=== PATIENT | female | born 1960 | race Caucasian/White ===

== ENCOUNTER → 2019-07-28 | Outpatient (CLI) | payer OTHER ==
--- NOTE | 2019-07-28 12:17 | MR ---
EXAMINATION TYPE: MR brain/cspine wo DATE OF EXAM: 07/28/2019 11:55 AM COMPARISON: NONE HISTORY: Headaches, Neck Pain. Hx of Trauma to neck area. Hx of Pituitary Adenoma TECHNIQUE: Multiplanar MultiSpin at imaging the brain was performed without contrast medium. High-res olution images were obtained through the pituitary fossa. FINDINGS: The ventricles, basal cisterns and sulci overlying the cerebral convexities are minimally enlarged. There is evidence of mild periventricular white matter ischemic demyelination. Remote deep white matter insults are also noted. No acute edema is seen on diffusion weighted imaging. There is no evidence for midline shift or mass effect. Acute intracranial hemorrhage or extra-axial collection is not evident. The paranasal sinuses are well-aerated. Fluid is seen within the right-sided mastoid air cells charly tible with chronic mastoiditis. Limited evaluation of the pituitary fossa demonstrates hyperdense lesion in the posterior aspect of t he pituitary gland measuring 7 mm which may reflect pituitary adenoma. Optic chiasm is midline. Supra sellar cistern is unremarkable. Pituitary gland is of normal size. IMPRESSION: Age-related atrophic and chronic small vessel ischemic change. No acute intracranial process at this time. Suspect pituitary adenoma. EXAMINATION TYPE: MR brain/cspine wo DATE OF EXAM: 07/28/2019 11:55 AM COMPARISON: NONE HISTORY: Headaches, Neck Pain. Hx of Trauma to neck area. Hx of Pituitary Adenoma Multiplanar MultiSpin echo imaging of the cervical spine was performed. Comparison: none C2-C3: No evidence for degenerative disc disease. No disc bulge/herniation or protrusion. No Canal stenosis. Foramina are patent bilaterally. C3-C4: No evidence for degenerative disc disease. No disc bulge/herniation or protrusion. No Canal stenosis. Foramina are patent bilaterally. C4-C5: No evidence for degenerative disc disease. No disc bulge/herniation or protrusion. No Canal stenosis. Foramina are patent bilaterally. C5-C6: Moderate disc desiccation noted. Posterior disc bulge with effacement of the ventral thecal sa c. Minimal ventral cord contact without overt stenosis. Bilateral neural foraminal encroachment. C6-C7: Moderate disc desiccation with posterior disc bulge. Mild effacement ventral thecal sac. No he rniation or central stenosis. Right greater than left foraminal encroachment. C7-T1: Moderate disc desiccation with posterior disc bulge. Mild effacement ventral thecal sac. No he rniation or central stenosis. Lateral foraminal encroachment. Cervical segments are intact. There is normal alignment. Cervical spinal cord is of normal signal. Craniovertebral junction relationships are within normal limits. IMPRESSION: 1. Multilevel degenerative disc disease and foraminal encroachment as discussed.
== END | disposition home or self-care (01) ==
LOC: RADMRIMAIN 10:34
PROVIDERS: ATTEND Family Medicine
DX: M50.322 Other cervical disc degeneration at C5-C6 level (principal); M48.02 Spinal stenosis, cervical region; Z86.011 Personal history of benign neoplasm of the brain
CPT/HCPCS: 70551; 72141

== ENCOUNTER → 2020-05-24 | Day surgery (SDC) | payer OTHER ==
[2020-05-17 15:49] VITALS: BMI 27.4
[~2020-05-24] MED LIST: ACETAMINOPHEN TAB 325 MG TAB ONE; ALPRAZolam 0.25 MG TAB PO PRN; ALPRAZolam 0.5 MG TAB PO PRN; ASPIRIN 325 MG TAB PO STA; ASPIRIN 81 MG PO SCH; ATORVASTATIN 80 MG TAB PO STA; HEPARIN SODIUM 1,000 UN/ML (10ML VL) IV ONE; HEPARIN SODIUM 1,000 UN/ML (10ML VL) ONE; HEPARIN SODIUM,PORCINE 10,000 UNIT in SODIUM CHLORIDE 0.9% 1,000 ML IRRIGATION PRN; HEPARIN SODIUM,PORCINE 2,500 UNIT in SODIUM CHLORIDE 0.9% 250 ML IRRIGATION PRN; IOPAMIDOL-370 125ML BTL INJ ONE; LIDOCAINE 1% INJ 10MG/ML (20 ML MDV) ONE; LIDOCAINE 1% INJ 10MG/ML (20 ML MDV) SQ ONE; MIDAZOLAM 2 MG/2 ML VIAL IV ONE; NITROGLYCERIN SL TABS 0.4 MG TAB SUBLINGUAL PRN; RX INFO: IV CONTRAST WAS GIVEN 1 EACH MISC MISCELLANE PRN; SODIUM CHLORIDE 0.9% 1,000 ML IV ONE; SODIUM CHLORIDE 0.9% 1,000 ML IV SCH; SODIUM CHLORIDE 0.9% 1,000 ML in EMPTY BAG 1 BAG IV ONE; VERAPAMIL 2.5 MG/ML 2 ML AMP ONE; VERAPAMIL SYRINGE (5 MG/10 ML) INTRAARTER ONE; fentaNYL (PF) 50 MCG/ML 2 ML AMP IV ONE; fentaNYL (PF) 50 MCG/ML 2 ML AMP ONE
[2020-05-24 07:05] VITALS: RESP 16; TEMP 98.5
--- NOTE | 2020-05-24 08:51 | CC ---
CARDIAC CATHETERIZATION REPORT Mrs. Strong is a 59-year-old female with known history of chronic tobacco use, was scheduled to undergo total knee arthroplasty and was found to have evidence of inducible ischemia. In view of that, recommendation was made regarding cardiac catheterization. The procedure as well as the risks and the complications were discussed with the patient who is in full understanding and agreement. PROCEDURE: Patient was brought to the dairy laboratory technician in a fasting semi-sedated state after receiving fentanyl and Benadryl and achieving moderate conscious sedated state. Using Xylocaine anesthesia and Seldinger technique, a 6-Gu[place] sheath was introduced in the right radial artery. Selective right and left coronary angiography was performed using 5- [place]alan 3.5 bend right and left Mario catheter. Multiple views of the coronary artery including hemiaxial views were obtained. Following that, 5-[place] tight pigtail catheter was introduced in the left ventricle and pressures were calculated. Following that, catheter and sheath were removed. Hemostasis was obtained with deployment of a TR band. There was no immediate complication. The patient was returned to her room in stable condition. Of note, the patient received 3500 units of intravenous heparin as well as intra-arterial verapamil. FINDINGS: FLUOROSCOPY: There was calcification involving all the coronary arteries of moderate degree. LEFT MAIN: This is a large-size vessel, bifurcating into left circumflex, left anterior descending artery. Left main coronary artery has no evidence of high-grade stenosis. LEFT ANTERIOR DESCENDING ARTERY: This is a large-size vessel reaching to the apex giving rise to a large diagonal branch. Left anterior descending artery as well as branches have no evidence of high-grade stenosis. There was mild plaque in the diagonal branch. LEFT CIRCUMFLEX: This is a nondominant vessel giving rise to 2 obtuse marginal branches. The second one is large in caliber. The left circumflex has mild intimal disease of 10% without any evidence of high-grade stenosis. RIGHT CORONARY ARTERY: This is a large dominant vessel bifurcating distally PDA and posterolateral segment and branches, calcified in the mid segment. The right coronary artery has a 10% to 20% plaque proximally. The rest of the vessel has no high-grade stenosis. LEFT VENTRICULOGRAM: Left ventriculogram is not performed. HEMODYNAMICS: There was no gradient across the aortic valve. The left ventricular end- diastolic pressure was 14-18 mmHg. CONCLUSION: 1. Calcified coronary arteries. 2. Minimal obstructive disease involving the 3 coronary arteries. RECOMMENDATION: In view of finding anatomy, I recommend continue medical therapy with aggressive coronary risk modification including smoking cessation. Those findings and recommendation were discussed with the patient and her family and they are in full understanding and agreement. Duration of sedation is 16 minutes. STEVE / TODDN: [id number] /
[2020-05-24 14:54] VITALS: BP 143/75; PULSE 83
== END | disposition home or self-care (01) ==
LOC: CATHCVL 06:35
PROVIDERS: ATTEND Internal Medicine Interventional Cardiology
DX: I25.10 Atherosclerotic heart disease of native coronary artery without angina pectoris (principal); I25.84 Coronary atherosclerosis due to calcified coronary lesion; M19.90 Unspecified osteoarthritis, unspecified site; F17.210 Nicotine dependence, cigarettes, uncomplicated; Z82.49 Family history of ischemic heart disease and other diseases of the circulatory system; Z98.890 Other specified postprocedural states; Z90.89 Acquired absence of other organs; Z84.1 Family history of disorders of kidney and ureter; Z90.710 Acquired absence of both cervix and uterus; Z79.82 Long term (current) use of aspirin
CPT/HCPCS: 93458; C1769; C1894; J2250; J2001; J3010; J1644; Q9967

== ENCOUNTER 2020-12-25 13:00 | Emergency (ER) | payer BC, OTHER ==
[2020-12-25 14:44] VITALS: RESP 18; TEMP 98.2
[2020-12-25] MEDS ORDERED: oxyCODONE-APAP 10-325MG 1 EACH TAB PO STA (15:55)
--- NOTE | 2020-12-25 15:57 | ED ---
General Adult HPI - General Chief complaint: Extremity Problem,Nontraumatic Stated complaint: Thinks blood clot leg Time Seen by Provider: 12/25/20 15:42 Source: patient Mode of arrival: ambulatory Limitations: no limitations - History of Present Illness Initial comments: Dictation was produced using [employer] dictation software. please excuse any gra mmatical, word or spelling errors. Chief Complaint: 60-year-old female presents with knee pain History of Present Illness: Patient is a 52-year-old female presents to the emergency department for knee pain. Patient states that she has had one week of knee pain. States that the pain is behind her knee down into her calf and to her left medial knee. Patient is no history of blood clots. Back in May of this year she had total knee replacement performed by orthopedic surgeon Dr. Coleman. Patient states that over the last week or so her knee pain has been getting significantly worse. She tried to follow-up with orthopedic surgeon but they told her to come to the ER to be evaluated for DVT. Patient denies any chest pain or shortness of breath. Denies any numbness daily and paresthesias to the distal extremities. States that she has history of arterial disease to the popliteal artery. The ROS documented in this emergency department record has been reviewed and confirmed by me. Those systems with pertinent positive or negative responses have been documented in the HPI. All other systems are other negative and/or noncontributory. PHYSICAL EXAM: General Impression: Alert and oriented x3, not in acute distress HEENT: Normocephalic atraumatic, extra-ocular movements intact, pupils equal and reactive to light bilaterally, mucous membranes moist. Cardiovascular: Heart regular rate and rhythm Chest: Able to complete full sentences, no retractions, no tachypnea Musculoskeletal: Pulses present and equal in all extremities, no peripheral edema Left knee: Surgical site to the anterior knee clean dry and intact, there is swelling and palpable crepitus to the anterior knee, there is calf tenderness with palpation.. Neurological: CN II-XII grossly intact, no focal motor or sensory deficits noted Skin: Intact with no visualized rashes Psych: Normal affect and mood ED course: 60-year-old female presents with 1 week of left knee pain. Clinical presentation concerning for the venous thrombosis patient does not have any PE symptoms. Vital signs upon arrival shows heart rate 112, rest of vital signs within acceptable limits. X-ray shows no acute processes. Ultrasound of the lower extremity shows no evidence for DVT. Patient reevaluated at bedside. It is unclear was causing patient's pain but is likely musculoskeletal. She is reevaluated at bedside at 5:30 PM and in stable medical condition. She is smiling and not in significant distress. She is able to move her leg after having been given analgesics. Patient be discharged per she is advised follow-up with her orthopedic surgeon. - Related Data Home Medications Medication Instructions Recorded Confirmed Aspirin [Adult Low Dose Aspirin EC] 81 mg PO DAILY 05/17/20 12/25/20 Ascorbic Acid [Vitamin C] 1,000 mg PO DAILY 12/25/20 12/25/20 Atorvastatin Calcium [Lipitor] 20 mg PO HS 12/25/20 12/25/20 Cholecalciferol [Vitamin D3 (25 25 mcg PO DAILY 12/25/20 12/25/20 Mcg = 1000 Iu)] Cyanocobalamin (Vitamin B-12) 1,000 mcg PO DAILY 12/25/20 12/25/20 [Vitamin B-12] Glucosamine/Chondr Chauhan A Sod [Osteo 1 tab PO DAILY 12/25/20 12/25/20 Bi-Flex Caplet] Magnesium 250 mg PO DAILY 12/25/20 12/25/20 Pyridoxine HCl (Vitamin B6) 100 mg PO DAILY 12/25/20 12/25/20 [Vitamin B-6] Zinc 50 mg PO DAILY 12/25/20 12/25/20 Allergies Allergy/AdvReac Type Severity Reaction Status Date / Time garlic Allergy Unknown Verified 12/25/20 16:26 onion Allergy Abdominal Verified 12/25/20 16:26 Pain, hives, thick tongue, headache, shakes Review of Systems ROS Statement: Those systems with pertinent positive or pertinent negative responses have been documented in the HPI. ROS Other: All systems not noted in ROS Statement are negative. Past Medical History Past Medical History: Cancer, GERD/Reflux, Osteoarthritis (OA) Additional Past Medical History / Comment(s): migraines, occ high blood pressure-no rx, heart murmer, occ feels "something with my heart", "buildup in left knee", precancer on cervix, recent failed stress test History of Any Multi-Drug Resistant Organisms: None Reported Past Surgical History: Hysterectomy, Orthopedic Surgery, Tonsillectomy Additional Past Surgical History / Comment(s): surgery for rx left arm with plates, colonsocopy Past Anesthesia/Blood Transfusion Reactions: Previous Problems w/ Anesthesia Additional Past Anesthesia/Blood Transfusion Reaction / Comment(s): "woke up with a headache after colonoscopy" Past Psychological History: Anxiety Smoking Status: Current every day smoker Past Alcohol Use History: Occasional Past Drug Use History: None Reported - Past Family History Mother Family Medical History: No Reported History General Exam Limitations: no limitations Course Vital Signs 12/25/20 14:41 Temperature 98.2 F Pulse Rate 112 H Respiratory 18 Rate Blood Pressure 142/98 O2 Sat by Pulse 97 Oximetry Disposition Clinical Impression: Knee pain Disposition: HOME SELF-CARE Condition: Fair Instructions (If sedation given, give patient instructions): Knee Pain (ED) Additional Instructions: follow up with you Knee surgeon Is patient prescribed a controlled substance at d/c from ED?: No Referrals: Rojas Arroyo MD [Primary Care Provider] - 1-2 days
--- NOTE | 2020-12-25 16:44 | XR ---
EXAMINATION TYPE: XR knee 4V LT DATE OF EXAM: 12/25/2020 COMPARISON: NONE HISTORY: Pain TECHNIQUE: Three views are submitted. FINDINGS: Joint spaces are preserved. Postsurgical changes involving the knee. Vascular calcifications noted. N o acute fracture seen. IMPRESSION: 1. No acute fracture or dislocation. 2. Postoperative change.
--- NOTE | 2020-12-25 17:23 | US ---
EXAMINATION TYPE: US venous doppler duplex LE LT DATE OF EXAM: 12/25/2020 3:54 PM COMPARISON: NONE CLINICAL HISTORY: pain. SIDE PERFORMED: Left TECHNIQUE: The lower extremity deep venous system is examined utilizing real time linear array sonog roberta with graded compression, doppler sonography and color-flow sonography. VESSELS IMAGED: Common Femoral Vein Deep Femoral Vein Greater Saphenous Vein * Femoral Vein Popliteal Vein Small Saphenous Vein * Proximal Calf Veins (* superficial vessels) Left Leg: Negative for DVT IMPRESSION: Grayscale, color doppler, spectral doppler imaging performed of the deep veins of the lo wer extremities. There is normal flow, compressibility, vascular waveforms.
[2020-12-25] MEDS ORDERED: ACET/COD 300 MG/30 MG STARTER PACK 6 TAB BTL PO STA (17:35)
--- NOTE | 2020-12-25 17:37 | ED ---
Disposition Clinical Impression: Knee pain Disposition: HOME SELF-CARE Condition: Fair Instructions (If sedation given, give patient instructions): Knee Pain (ED) Additional Instructions: follow up with you Knee surgeon Prescriptions: oxyCODONE HCL/ACETAMINOPHEN [Percocet 5-325 mg] 1 tab PO Q6HR PRN 3 Days #12 tab PRN Reason: Pain Is patient prescribed a controlled substance at d/c from ED?: Yes If prescribed controlled substance>3 days was MAPS reviewed?: Prescribed <3 Days Referrals: Rojas Arroyo MD [Primary Care Provider] - 1-2 days
[2020-12-25 17:48] VITALS: BP 177/101; PULSE 101
== END 2020-12-25 17:47 | disposition home or self-care (01) ==
LOC: EC 13:00
DX: M25.562 Pain in left knee (principal); K21.9 Gastro-esophageal reflux disease without esophagitis; M19.90 Unspecified osteoarthritis, unspecified site; F17.200 Nicotine dependence, unspecified, uncomplicated; Z79.82 Long term (current) use of aspirin; Z79.899 Other long term (current) drug therapy
CPT/HCPCS: 99284

== ENCOUNTER 2022-09-11 11:17 | Day surgery (SDC) | payer BC ==
[~2022-09-11 11:17] MED LIST changes: -ACETAMINOPHEN TAB 325 MG TAB ONE; -ALPRAZolam 0.25 MG TAB PO PRN; -ALPRAZolam 0.5 MG TAB PO PRN; -ASPIRIN 325 MG TAB PO STA; -ASPIRIN 81 MG PO SCH; -ATORVASTATIN 80 MG TAB PO STA; +FAMOTIDINE 20 MG/2 ML VIAL IV PRN; -HEPARIN SODIUM 1,000 UN/ML (10ML VL) IV ONE; -HEPARIN SODIUM 1,000 UN/ML (10ML VL) ONE; -HEPARIN SODIUM,PORCINE 10,000 UNIT in SODIUM CHLORIDE 0.9% 1,000 ML IRRIGATION PRN; -HEPARIN SODIUM,PORCINE 2,500 UNIT in SODIUM CHLORIDE 0.9% 250 ML IRRIGATION PRN; -IOPAMIDOL-370 125ML BTL INJ ONE; -LIDOCAINE 1% INJ 10MG/ML (20 ML MDV) ONE; -LIDOCAINE 1% INJ 10MG/ML (20 ML MDV) SQ ONE; -MIDAZOLAM 2 MG/2 ML VIAL IV ONE; -NITROGLYCERIN SL TABS 0.4 MG TAB SUBLINGUAL PRN; +ONDANSETRON 4 MG/2 ML VIAL IVP PRN; +Pre Op ABX Message 1 EACH MISC MISCELLANE ONE; -RX INFO: IV CONTRAST WAS GIVEN 1 EACH MISC MISCELLANE PRN; -SODIUM CHLORIDE 0.9% 1,000 ML IV ONE; -SODIUM CHLORIDE 0.9% 1,000 ML IV SCH; -SODIUM CHLORIDE 0.9% 1,000 ML in EMPTY BAG 1 BAG IV ONE; -VERAPAMIL 2.5 MG/ML 2 ML AMP ONE; -VERAPAMIL SYRINGE (5 MG/10 ML) INTRAARTER ONE; -fentaNYL (PF) 50 MCG/ML 2 ML AMP IV ONE; -fentaNYL (PF) 50 MCG/ML 2 ML AMP ONE
[2022-09-11] MEDS ORDERED: LIDOCAINE 1% (10MG/ML) FOR IV START INTRADERMA PRN (11:47)
[2022-09-11] MEDS ORDERED: LACTATED RINGERS 1,000 ML IV SCH (11:47)
[2022-09-11] MEDS ORDERED: HYDROmorphone 0.5 MG/0.5 ML SYRINGE IVP PRN (11:47)
[2022-09-11 11:56] VITALS: TEMP 98.1
[2022-09-11] MEDS ORDERED: DEXAMETHASONE SOD PHOSPHATE 4 MG/ML 1 ML VIAL IV ONE (12:08)
[2022-09-11] MEDS ORDERED: MIDAZOLAM 2 MG/2 ML VIAL IV ONE (12:18)
[2022-09-11] MEDS ORDERED: NALOXONE 0.4 MG/ML 1 ML VIAL ONE (12:56)
[2022-09-11] MEDS ORDERED: LIDOCAINE 2% INJ 20 MG/ML (2 ML VIAL) ONE (12:56)
[2022-09-11] MEDS ORDERED: PROPOFOL 10 MG/ML 20 ML VIAL IV ONE (12:56)
[2022-09-11] MEDS ORDERED: DEXAMETHASONE SOD PHOSPHATE 10 MG/ML 1 ML VIAL ONE (12:56)
[2022-09-11] MEDS ORDERED: SUCCINYLCHOLINE CHLORIDE 200 MG/10 ML VIAL IV ONE (12:56)
[2022-09-11] MEDS ORDERED: fentaNYL (PF) 50 MCG/ML 2 ML AMP ONE (12:56)
[2022-09-11] MEDS ORDERED: MIDAZOLAM 2 MG/2 ML VIAL ONE (12:56)
[2022-09-11] MEDS ORDERED: SODIUM CHLORIDE 0.9% 100 ML BAG ONE (12:59)
[2022-09-11] MEDS ORDERED: SODIUM CHLORIDE 0.9% 50 ML with ceFAZolin 2,000 MG IV ONE ×2 (12:59)
[2022-09-11] MEDS ORDERED: ceFAZolin 1,000 MG VIAL ONE (12:59)
--- NOTE | 2022-09-11 13:37 | P.OP ---
Date of Procedure: 09/11/22 Preoperative Diagnosis: Right vocal cord polyp Postoperative Diagnosis: Same Procedure(s) Performed: Microlaryngoscopy with excision right vocal cord polyp Anesthesia: ALFRED Surgeon: Igor Chavira Estimated Blood Loss (ml): 1 Pathology: other (Right vocal cord) Condition: stable Disposition: PACU Indications for Procedure: Is a 61-year-old white female with chronic hoarseness and had appearance of right vocal cord polyp including on video stroboscopy Operative Findings: Right vocal cord polyp which was broad-based from nearly the anterior commissure to approximately 3/4 back on the vocal cord and protruding approximate 4 mm this was smooth and mildly pink and edematous Description of Procedure: The patient was brought in the operative suite and placed in a supine position. Patient underwent induction of general anesthesia with oral endotracheal intubation without difficulty. The patient was prepped and draped in usual aseptic fashion. The gum guard was placed and direct laryngoscopy was performed with systematic evaluation of the base of tongue vallecula piriform sinuses post cricoid area and endolarynx. With the larynx in good visualization the laryngoscope was placed in suspension and the Zeiss microscope was brought into position to visualize the vocal cords. The above findings were noted. With the vocal cords and good visualization the polyp of the right vocal cord was grasped cup forcep and was dissected from the underlying tissue with microscissors and microdissection technique leaving the lamina propria intact. Hemostasis was gained spontaneously. The larger scope and gum guard were removed. The patient was allowed to emerge from anesthesia having tolerated procedure well was extubated in the operating suite and transferred to postop recovery area in satisfactory condition.
[2022-09-11] MEDS ORDERED: HYDROmorphone 0.5 MG/0.5 ML SYRINGE IVP ONE (14:06)
[2022-09-11] MEDS ORDERED: LABETALOL SYRINGE 5 MG/ML IVP ONE (14:35)
[2022-09-11] MEDS ORDERED: LACTATED RINGERS 1,000 ML IV ONE (14:49)
[2022-09-11 15:08] VITALS: RESP 18
[2022-09-11 15:16] VITALS: BP 135/94; PULSE 91
== END 2022-09-11 15:39 | disposition home or self-care (01) ==
LOC: OR 11:17
PROVIDERS: ATTEND Otolaryngology
DX: J38.1 Polyp of vocal cord and larynx (principal); E78.5 Hyperlipidemia, unspecified; Z87.891 Personal history of nicotine dependence; Z79.82 Long term (current) use of aspirin; Z79.52 Long term (current) use of systemic steroids; Z79.899 Other long term (current) drug therapy
CPT/HCPCS: 31541; 88305; J2250; J0330; J1100 ×2; J2310; J2405; J0690; J3010; J2704; J1170; J2001